=== PATIENT | female | born 1995 | race Caucasian/White ===

== ENCOUNTER 2017-09-20 00:25 | Day surgery (SDC) | payer OTHER ==
[~2017-09-20 00:25] MED LIST: BUDESONIDE EC3 MG PO; BUSP15 PO; CIPR500 PO; Entocort EC 3 mg3 MG PO; FAMO20 PO; Flonase 0.05% N16 GM; HYDMOR2 PO; Hydrocodone-Ap1 EA20 PO; IBUP800; IBUP800 PO; INFLECTRA100 MG IV; Lialda1.2 GM PO; METR500 PO; ONDA4 PO; OXYACE5T PO; PRED20 PO; PROM25 PO; Purinethol50 MG GT; Sulfamethoxazo1 EAC4 PO; TRAM50 PO; Ultram50 MG PO; Verotin-Gr Cap1 EACH PO
== END 2017-09-20 10:38 | disposition home or self-care (01) ==
LOC: ATC 00:25
DX: K50.00 Crohn's disease of small intestine without complications (principal); F41.9 Anxiety disorder, unspecified
CPT/HCPCS: 96413; 96415; J7050; Q5102-ZB

== ENCOUNTER 2017-10-30 | Day surgery (SDC) | END 2017-10-30 11:04 | disposition home or self-care (01) ==

== ENCOUNTER 2017-12-11 00:21 | Day surgery (SDC) | payer OTHER ==
[2017-12-11] MEDS ORDERED: BUDESONIDE EC3 MG PO (09:19)
== END 2017-12-11 11:34 | disposition home or self-care (01) ==
LOC: ATC 00:21
DX: K50.00 Crohn's disease of small intestine without complications (principal); F41.9 Anxiety disorder, unspecified
CPT/HCPCS: 96413; 96415; J7050; Q5103

== ENCOUNTER 2018-01-22 00:26 | Day surgery (SDC) | payer OTHER ==
[2018-01-22] MEDS ORDERED: ESCI10 PO (09:00)
== END 2018-01-22 11:29 | disposition home or self-care (01) ==
LOC: ATC 00:26
DX: K50.00 Crohn's disease of small intestine without complications (principal)
CPT/HCPCS: 96375; 96413; 96415; J2405; J7050; Q5103

== ENCOUNTER 2018-03-05 00:21 | Day surgery (SDC) | payer OTHER ==
[~2018-03-05 00:21] MED LIST changes: +ESCI10 PO
== END 2018-03-05 16:14 | disposition home or self-care (01) ==
LOC: ATC 00:21
DX: K50.00 Crohn's disease of small intestine without complications (principal); F41.9 Anxiety disorder, unspecified
CPT/HCPCS: 96413; 96415; J7050; Q5103

== ENCOUNTER 2018-04-16 16:06 | Emergency (ER) | payer OTHER ==
[~2018-04-16] VITALS: Ht 162.6 cm; Wt 77.1 kg
[2018-04-16 17:13] LABS: Source, Urine Clean Catch
[2018-04-16 17:19] LABS: BASOPHILS ABSOLUTE AUTO 0.07 K/mm3 (0.00-0.23); BASOPHILS PERCENT AUTO 1 % (0-2); EOSINOPHILS ABSOLUTE AUTO 0.25 K/mm3 (0.00-0.68); EOSINOPHILS PERCENT AUTO 3 % (0-6); Hemoglobin 13.1 g/dL (11.5-16.0); IMMATURE GRAN ABSOLUTE AUTO 0.02 K/mm3 (0.00-0.10); IMMATURE GRAN PERCENT AUTO 0 % (0-1); LYMPHOCYTES ABSOLUTE AUTO 2.47 K/mm3 (0.84-5.20); LYMPHOCYTES PERCENT AUTO 30 % (21-46); MONOCYTES ABSOLUTE AUTO 0.73 K/mm3 (0.16-1.47); MONOCYTES PERCENT AUTO 9 % (4-13); Mean Corpuscular HGB 31.9 pg (26.0-34.0); Mean Corpuscular HGB Conc 35.4 g/dL (31.5-36.5); Mean Corpuscular Volume 90 fL (80-100); Mean Platelet Volume 11.6 fL (9.1-12.4); NEUTROPHILS ABSOLUTE AUTO 4.61 K/mm3 (1.96-9.15); NEUTROPHILS PERCENT AUTO 57 % (41-73); Platelet Count 208 K/mm3 (150-400); RDW Coefficient Variation 11.7 % (11.7-14.2); RDW Standard Deviation 38.5 fL (35.1-46.3); Red Blood Cell Count 4.11 M/mm3 (3.80-5.20); White Blood Cell Count 8.15 K/mm3 (4.00-11.30)
[2018-04-16 17:22] LABS: Appearance, Urine Clear (Clear); Bilirubin, Urine Neg (Neg); Blood, Urine Neg (Neg); Color, Urine Yellow (P-Yellow); Glucose Qualitative, Urine Neg (Neg); Ketones, Urine Neg (Neg); Leukocyte Esterase, Urine 1+ (Neg); Nitrite, Urine Neg (Neg); Protein, Urine Neg (Neg); Specific Gravity, Urine 1.005 (1.003-1.022); Urobilinogen, Urine NORM (Normal)
[2018-04-16 17:39] LABS: Alanine Aminotransfer (ALT/SGP 22 U/L (12-78); Albumin, Blood 3.8 g/dL (3.4-5.0); Albumin/Globulin Ratio 1.1 (0.8-1.8); Alk Phos 58 U/L (50-136); Anion Gap 7 mmol/L (6-16); Aspartate Aminotrans (AST/SGOT 36 U/L (12-37); Bilirubin, Total 0.4 mg/dL (0.1-1.0); Blood Urea Nitrogen 13 mg/dL (8-24); Bun/Creatinine Ratio 19.6 (12.0-20.0); CO2, Blood 25 mmol/L (21-32); Calcium, Blood 8.9 mg/dL (8.5-10.1); Chloride, Blood 109 mmol/L (98-108); Creatinine, Blood 0.66 mg/dL (0.40-1.00); Globulin, Blood 3.4 g/dL (2.2-4.0); Glomerular Filtration Rate >60 (60-); Glucose, Blood 86 mg/dL (70-99); Potassium, Blood 4.5 mmol/L (3.5-5.5); Sodium, Blood 141 mmol/L (136-145); Total Protein, Blood 7.2 g/dL (6.4-8.2)
[2018-04-16 17:45] LABS: Bacteria Few /hpf; Red Blood Cells, Urine Not Seen /hpf (0-2); Squamous Epithelial Cells Mod /hpf (Few); White Blood Cells, Urine Not Seen /hpf (0-5)
[2018-04-16] MEDS ORDERED: Zofran4 MG PO (21:13)
[2018-04-16] MEDS ORDERED: TRAM50 PO (21:13)
== END 2018-04-16 21:31 | disposition home or self-care (01) ==
LOC: ER 16:06
PROVIDERS: Internal Medicine
DX: K52.9 Noninfective gastroenteritis and colitis, unspecified (principal)
CPT/HCPCS: 36415; 74177; 80053; 81001; 81025; 83690; 85025; 96374; 96375; 96376; 99284-25; J1200; J2405; J2765; J3010; Q9967

== ENCOUNTER 2018-05-30 02:02 | Day surgery (SDC) | payer OTHER ==
[~2018-05-30 02:02] MED LIST changes: +Zofran4 MG PO
== END 2018-05-30 16:37 | disposition home or self-care (01) ==
LOC: ATC 02:02
DX: K50.90 Crohn's disease, unspecified, without complications (principal)
CPT/HCPCS: 96413; 96415; J7050; Q5103

== ENCOUNTER 2018-09-03 18:55 | Emergency (ER) | payer OTHER ==
[~2018-09-03] VITALS: Ht 165.1 cm; Wt 70.3 kg
[2018-09-03 19:32] LABS: BASOPHILS ABSOLUTE AUTO 0.07 K/mm3 (0.00-0.23); BASOPHILS PERCENT AUTO 1 % (0-2); EOSINOPHILS ABSOLUTE AUTO 0.13 K/mm3 (0.00-0.68); EOSINOPHILS PERCENT AUTO 2 % (0-6); Hematocrit 40.1 % (33.0-51.0); Hemoglobin 13.8 g/dL (11.5-16.0); IMMATURE GRAN ABSOLUTE AUTO 0.03 K/mm3 (0.00-0.10); IMMATURE GRAN PERCENT AUTO 0 % (0-1); LYMPHOCYTES PERCENT AUTO 36 % (21-46); MONOCYTES ABSOLUTE AUTO 0.77 K/mm3 (0.16-1.47); MONOCYTES PERCENT AUTO 10 % (4-13); Mean Corpuscular HGB 31.3 pg (26.0-34.0); Mean Corpuscular HGB Conc 34.4 g/dL (31.5-36.5); Mean Corpuscular Volume 91 fL (80-100); Mean Platelet Volume 11.4 fL (9.1-12.4); NEUTROPHILS ABSOLUTE AUTO 4.09 K/mm3 (1.96-9.15); NEUTROPHILS PERCENT AUTO 51 % (41-73); Platelet Count 230 K/mm3 (150-400); RDW Coefficient Variation 11.4 % (11.7-14.2); RDW Standard Deviation 38.4 fL (35.1-46.3); Red Blood Cell Count 4.41 M/mm3 (3.80-5.20); White Blood Cell Count 7.99 K/mm3 (4.00-11.30)
[2018-09-03 19:46] LABS: Alanine Aminotransfer (ALT/SGP 19 U/L (12-78); Albumin, Blood 4.1 g/dL (3.4-5.0); Albumin/Globulin Ratio 1.2 (0.8-1.8); Alk Phos 54 U/L (50-136); Anion Gap 5 mmol/L (6-16); Aspartate Aminotrans (AST/SGOT 13 U/L (12-37); Bilirubin, Total 0.3 mg/dL (0.1-1.0); Blood Urea Nitrogen 13 mg/dL (8-24); Bun/Creatinine Ratio 17.2 (12.0-20.0); CO2, Blood 28 mmol/L (21-32); Calcium, Blood 8.8 mg/dL (8.5-10.1); Chloride, Blood 108 mmol/L (98-108); Creatinine, Blood 0.76 mg/dL (0.40-1.00); Globulin, Blood 3.4 g/dL (2.2-4.0); Glomerular Filtration Rate >60 (60-); Glucose, Blood 92 mg/dL (70-99); Potassium, Blood 3.9 mmol/L (3.5-5.5); Sodium, Blood 141 mmol/L (136-145); Total Protein, Blood 7.5 g/dL (6.4-8.2); Troponin I <0.015 ng/mL (0.000-0.040)
[2018-09-04] MEDS ORDERED: Vistaril25 MG PO (02:24)
== END 2018-09-04 02:47 | disposition home or self-care (01) ==
LOC: ER 18:55
PROVIDERS: Emergency Medicine
DX: F41.9 Anxiety disorder, unspecified (principal); R53.1 Weakness; R47.01 Aphasia; Z88.5 Allergy status to narcotic agent; Z79.899 Other long term (current) drug therapy
CPT/HCPCS: 36415; 70450; 74177; 80053; 84484; 85025; 96361; 96374; 96375; 96376; 99285-25; J2550; J3010; J7120; Q3014; Q9967

== ENCOUNTER 2018-09-17 00:11 | Day surgery (SDC) | payer OTHER ==
[~2018-09-17 00:11] MED LIST changes: +Vistaril25 MG PO
== END 2018-09-17 23:01 | disposition home or self-care (01) ==
LOC: ATC 00:11
DX: K50.00 Crohn's disease of small intestine without complications (principal)
CPT/HCPCS: 96413; 96415; J7050; Q5103

== ENCOUNTER 2018-11-12 00:12 | Day surgery (SDC) | payer OTHER | END 2018-11-12 16:25 | disposition home or self-care (01) | LOC: ATC 00:12 | DX: K50.00 Crohn's disease of small intestine without complications (principal); L40.9 Psoriasis, unspecified; F41.8 Other specified anxiety disorders | CPT/HCPCS: 96413; 96415; J7050; Q5103 ==

== ENCOUNTER 2018-12-18 13:42 | Emergency (ER) | payer OTHER ==
[~2018-12-18] VITALS: Ht 162.6 cm; Wt 68.0 kg
[2018-12-18] MEDS ORDERED: Remicade100 MG IV (13:55)
[2018-12-18] MEDS ORDERED: ESCI20 PO (13:55)
[2018-12-18] MEDS ORDERED: Veetids 500500 MG PO (14:08)
[2018-12-18] MEDS ORDERED: PROM25 PO (14:08)
== END 2018-12-18 14:17 | disposition home or self-care (01) ==
LOC: ER 13:42
DX: K04.7 Periapical abscess without sinus (principal); Z88.5 Allergy status to narcotic agent; Z79.899 Other long term (current) drug therapy
CPT/HCPCS: 99282

== ENCOUNTER 2018-12-26 00:18 | Day surgery (SDC) | payer OTHER ==
[~2018-12-26 00:18] MED LIST changes: +ESCI20 PO; +Remicade100 MG IV; +Veetids 500500 MG PO
--- NOTE | 2018-12-26 14:36 | NUR ---
12/26 1341 DENIES FEVER OR SURGERY. REPORTS SHE HAS ONE MORE DAY OF ANTIBIOTIC FOR DENTAL/WISDOM TOOTH. CALL PLACED TO DR ZHAO, HE REPORTS OKAY TO GIVE INFLECTRA.
== END 2018-12-26 16:04 | disposition home or self-care (01) ==
LOC: ATC 00:18
DX: K50.00 Crohn's disease of small intestine without complications (principal); F41.8 Other specified anxiety disorders; J45.909 Unspecified asthma, uncomplicated; Z88.5 Allergy status to narcotic agent; Z79.899 Other long term (current) drug therapy
CPT/HCPCS: 96413; 96415; J7050; Q5103

== ENCOUNTER → 2019-03-15 | Outpatient (CLI) | payer OTHER ==
[2019-03-18 15:06] LABS: CHLAMYDIA TRACHOMATIS, NAA Negative (Negative); NEISSERIA GONORRHOEAE, NAA Negative (Negative)
== END | disposition home or self-care (01) ==
LOC: LAB SHORT 11:28 → LAB 11:28
PROVIDERS: Obstetrics & Gynecology
DX: Z01.419 Encounter for gynecological examination (general) (routine) without abnormal findings (principal); Z11.3 Encounter for screening for infections with a predominantly sexual mode of transmission
CPT/HCPCS: 87491; 87591; G0123

== ENCOUNTER 2019-03-22 00:59 | Day surgery (SDC) | payer OTHER | END 2019-03-22 23:43 | disposition home or self-care (01) | LOC: ATC 00:59 | DX: K50.00 Crohn's disease of small intestine without complications (principal); F41.8 Other specified anxiety disorders; J45.909 Unspecified asthma, uncomplicated; Z88.8 Allergy status to other drugs, medicaments and biological substances; Z88.5 Allergy status to narcotic agent; Z79.899 Other long term (current) drug therapy | CPT/HCPCS: 96413; 96415; J7050; Q5103 ==

== ENCOUNTER 2019-05-01 00:09 | Day surgery (SDC) | payer OTHER | END 2019-05-01 16:57 | disposition home or self-care (01) | LOC: ATC 00:09 | DX: K50.00 Crohn's disease of small intestine without complications (principal); Z88.5 Allergy status to narcotic agent | CPT/HCPCS: 96413; 96415; A9270; J7050; Q5103 ==

== ENCOUNTER 2019-06-19 00:09 | Day surgery (SDC) | payer OTHER | END 2019-06-19 11:25 | disposition home or self-care (01) | LOC: ATC 00:09 | DX: K50.00 Crohn's disease of small intestine without complications (principal); F41.0 Panic disorder [episodic paroxysmal anxiety]; Z79.899 Other long term (current) drug therapy; Z88.5 Allergy status to narcotic agent; Z88.8 Allergy status to other drugs, medicaments and biological substances | CPT/HCPCS: 96413; 96415; J7050; Q5103 ==

== ENCOUNTER 2019-08-07 00:15 | Day surgery (SDC) | payer OTHER ==
--- NOTE | 2019-08-07 09:22 | NUR ---
PRE-MEDICATIONS: PATIENT RESTING COMFORTABLY IN CHAIR. DENIES RECENT FEVER, CHILLS, INFECTION, OR SURGICAL PROCEDURE. PATIENT DENIES NEED FOR PRE-MEDICATIONS. PATIENT REPORTS SHE IS FAMILIAR WITH RECEIVING REMICADE INFUSIONS AT [facility].
== END 2019-08-07 11:58 | disposition home or self-care (01) ==
LOC: ATC 00:15
DX: K50.00 Crohn's disease of small intestine without complications (principal); F41.9 Anxiety disorder, unspecified; Z88.5 Allergy status to narcotic agent; Z79.899 Other long term (current) drug therapy
CPT/HCPCS: 96413; 96415; J7050; Q5103

== ENCOUNTER 2019-09-23 00:06 | Day surgery (SDC) | payer OTHER | END 2019-09-23 11:29 | disposition home or self-care (01) | LOC: ATC 00:06 | DX: K50.00 Crohn's disease of small intestine without complications (principal); F41.0 Panic disorder [episodic paroxysmal anxiety]; Z79.899 Other long term (current) drug therapy; Z88.5 Allergy status to narcotic agent | CPT/HCPCS: 96413; 96415; J7050; Q5103 ==

== ENCOUNTER 2019-11-13 00:05 | Day surgery (SDC) | payer OTHER | END 2019-11-13 12:03 | disposition home or self-care (01) | LOC: ATC 00:05 | DX: K50.00 Crohn's disease of small intestine without complications (principal); F41.9 Anxiety disorder, unspecified; Z88.5 Allergy status to narcotic agent; Z79.899 Other long term (current) drug therapy | CPT/HCPCS: 96413; 96415; J2405; J7050; Q5103 ==

== ENCOUNTER 2020-01-03 00:11 | Day surgery (SDC) | payer OTHER | END 2020-01-03 16:15 | disposition home or self-care (01) | LOC: ATC 00:11 | DX: K50.00 Crohn's disease of small intestine without complications (principal); Z79.899 Other long term (current) drug therapy; F41.9 Anxiety disorder, unspecified; Z88.8 Allergy status to other drugs, medicaments and biological substances | CPT/HCPCS: J7050; Q5103 ==

== ENCOUNTER 2020-04-17 00:34 | Day surgery (SDC) | payer OTHER ==
[2020-04-17] MEDS ORDERED: TRAZ50 PO (15:48)
== END 2020-04-17 17:25 | disposition home or self-care (01) ==
LOC: ATC 00:34
DX: K50.00 Crohn's disease of small intestine without complications (principal); Z88.5 Allergy status to narcotic agent
CPT/HCPCS: 96413; 96415; J7050; Q5103

== ENCOUNTER 2020-07-27 01:54 | Day surgery (SDC) | payer OTHER ==
[~2020-07-27 01:54] MED LIST changes: +TRAZ50 PO
== END 2020-07-27 16:01 | disposition home or self-care (01) ==
LOC: ATC 01:54
DX: K50.00 Crohn's disease of small intestine without complications (principal); Z79.899 Other long term (current) drug therapy
CPT/HCPCS: 96413; 96415; J7050; Q5103

== ENCOUNTER 2020-09-14 00:32 | Day surgery (SDC) | payer OTHER | END 2020-09-14 11:30 | disposition home or self-care (01) | LOC: ATC 00:32 | DX: K50.00 Crohn's disease of small intestine without complications (principal); F41.9 Anxiety disorder, unspecified; F41.0 Panic disorder [episodic paroxysmal anxiety]; Z79.899 Other long term (current) drug therapy; Z88.5 Allergy status to narcotic agent | CPT/HCPCS: 96413; 96415; J7050; Q5103 ==

== ENCOUNTER 2020-11-02 00:22 | Day surgery (SDC) | payer OTHER ==
[~2020-11-02] VITALS: Wt 79.6 kg
--- NOTE | 2020-11-02 14:01 | NUR ---
PT DECLINED PRE MEDS TODAY.
== END 2020-11-02 15:57 | disposition home or self-care (01) ==
LOC: ATC 00:22
DX: K50.00 Crohn's disease of small intestine without complications (principal); Z88.5 Allergy status to narcotic agent; Z79.899 Other long term (current) drug therapy
CPT/HCPCS: 96413; 96415; J7050; Q5103

== ENCOUNTER → 2020-12-10 | Outpatient (CLI) | payer OTHER | END | disposition home or self-care (01) | LOC: LAB SHORT 10:30 | DX: N39.0 Urinary tract infection, site not specified (principal) | CPT/HCPCS: 87077; 87086; 87186 ==

== ENCOUNTER 2020-12-27 20:38 | Emergency (ER) | payer OTHER ==
[~2020-12-27] VITALS: Ht 162.6 cm; Wt 77.1 kg
[2020-12-27 21:03] LABS: BASOPHILS ABSOLUTE AUTO 0.09 K/mm3 (0.00-0.23); BASOPHILS PERCENT AUTO 1 % (0-2); EOSINOPHILS ABSOLUTE AUTO 0.22 K/mm3 (0.00-0.68); EOSINOPHILS PERCENT AUTO 3 % (0-6); Hematocrit 37.5 % (33.0-51.0); Hemoglobin 13.2 g/dL (11.5-16.0); IMMATURE GRAN ABSOLUTE AUTO 0.04 K/mm3 (0.00-0.10); IMMATURE GRAN PERCENT AUTO 1 % (0-1); LYMPHOCYTES ABSOLUTE AUTO 2.74 K/mm3 (0.84-5.20); LYMPHOCYTES PERCENT AUTO 38 % (21-46); MONOCYTES ABSOLUTE AUTO 0.78 K/mm3 (0.16-1.47); MONOCYTES PERCENT AUTO 11 % (4-13); Mean Corpuscular HGB 31.6 pg (26.0-34.0); Mean Corpuscular HGB Conc 35.2 g/dL (31.5-36.5); Mean Corpuscular Volume 90 fL (80-100); Mean Platelet Volume 10.9 fL (9.1-12.4); NEUTROPHILS ABSOLUTE AUTO 3.37 K/mm3 (1.96-9.15); NEUTROPHILS PERCENT AUTO 47 % (41-73); Platelet Count 271 K/mm3 (150-400); RDW Coefficient Variation 11.8 % (11.7-14.2); RDW Standard Deviation 38.5 fL (35.1-46.3); Red Blood Cell Count 4.18 M/mm3 (3.80-5.20); White Blood Cell Count 7.24 K/mm3 (4.00-11.30)
[2020-12-27 21:14] LABS: Source, Urine Clean Catch
[2020-12-27 21:22] LABS: Bilirubin, Urine Neg (Neg); Blood, Urine Neg (Neg); Glucose Qualitative, Urine Neg (Neg); Ketones, Urine Neg (Neg); Leukocyte Esterase, Urine 1+ (Neg); Nitrite, Urine Neg (Neg); Protein, Urine Neg (Neg); Specific Gravity, Urine 1.005 (1.003-1.022); Urobilinogen, Urine NORM (Normal)
[2020-12-27 21:23] LABS: Alanine Aminotransfer (ALT/SGP 20 U/L (12-78); Albumin, Blood 3.9 g/dL (3.4-5.0); Albumin/Globulin Ratio 1.2 (0.8-1.8); Alk Phos 46 U/L (50-136); Anion Gap 3 mmol/L (6-16); Aspartate Aminotrans (AST/SGOT 14 U/L (12-37); Bilirubin, Total 0.4 mg/dL (0.1-1.0); Blood Urea Nitrogen 10 mg/dL (8-24); Bun/Creatinine Ratio 10.4 (12.0-20.0); CO2, Blood 27 mmol/L (21-32); Calcium, Blood 8.6 mg/dL (8.5-10.1); Chloride, Blood 105 mmol/L (98-108); Creatinine, Blood 0.96 mg/dL (0.40-1.00); Globulin, Blood 3.2 g/dL (2.2-4.0); Glomerular Filtration Rate >60 (60-); Glucose, Blood 87 mg/dL (70-99); Potassium, Blood 3.8 mmol/L (3.5-5.5); Sodium, Blood 135 mmol/L (136-145); Total Protein, Blood 7.1 g/dL (6.4-8.2)
[2020-12-27 21:37] LABS: C-Reactive Protein, High Sens. <O.160 mg/L (0.000-3.000)
[2020-12-27 21:54] LABS: Appearance, Urine Hazy (Clear); Color, Urine Pale Yellow (P-Yellow)
[2020-12-27 21:55] LABS: Bacteria Few /hpf; Red Blood Cells, Urine Not Seen /hpf (0-2); Squamous Epithelial Cells Many /hpf (Few); White Blood Cells, Urine 0-2 /hpf (0-5)
[2020-12-27] MEDS ORDERED: Phenergan25 M1 PO (22:45)
== END 2020-12-27 23:44 | disposition home or self-care (01) ==
LOC: ER 20:38
PROVIDERS: Emergency Medicine
DX: K50.90 Crohn's disease, unspecified, without complications (principal)
CPT/HCPCS: 36415; 74177; 80053; 81001; 81025; 83690; 85025; 85651; 86141; 96361; 96374-59; 96375; 99283-25; A9270; A9270-GY; J1100; J2270; J2405; J2550; J7030; Q9967

== ENCOUNTER 2021-02-17 05:01 | Day surgery (SDC) | payer OTHER ==
[~2021-02-17 05:01] MED LIST changes: +Phenergan25 M1 PO
== END 2021-02-17 15:56 | disposition home or self-care (01) ==
LOC: ATC 05:01
DX: K50.00 Crohn's disease of small intestine without complications (principal)
CPT/HCPCS: 96413; 96415; A9270; J2405; J2920; J7050; Q5103

== ENCOUNTER 2021-04-09 00:09 | Day surgery (SDC) | payer OTHER | END 2021-04-09 16:40 | disposition home or self-care (01) | LOC: ATC 00:09 | DX: K50.00 Crohn's disease of small intestine without complications (principal); Z88.5 Allergy status to narcotic agent | CPT/HCPCS: 96413; 96415; J7050; Q5103 ==

== ENCOUNTER 2021-05-28 03:43 | Day surgery (SDC) | payer OTHER ==
[~2021-05-28] VITALS: Wt 76.3 kg
== END 2021-05-28 16:07 | disposition home or self-care (01) ==
LOC: ATC 03:43
DX: K50.00 Crohn's disease of small intestine without complications (principal)
CPT/HCPCS: 96413; 96415; J7050; Q5103

== ENCOUNTER → 2021-05-28 | Outpatient (CLI) | payer OTHER | END | disposition home or self-care (01) | LOC: LAB 13:42 → LAB SHORT 13:42 | DX: K92.1 Melena (principal); R19.7 Diarrhea, unspecified | CPT/HCPCS: 82397 ==

== ENCOUNTER 2021-07-16 04:10 | Day surgery (SDC) | payer OTHER ==
--- NOTE | 2021-07-16 14:25 | NUR ---
PT DECLINES PRE MEDS TODAY.
== END 2021-07-16 16:40 | disposition home or self-care (01) ==
LOC: ATC 04:10
DX: K50.00 Crohn's disease of small intestine without complications (principal); Z79.899 Other long term (current) drug therapy
CPT/HCPCS: 96413; 96415; J7050; Q5103

== ENCOUNTER 2021-10-28 00:09 | Day surgery (SDC) | payer OTHER ==
[~2021-10-28] VITALS: Wt 81.9 kg
[~2021-10-28 00:09] MED LIST changes: +MESALAMINE DR400 MG PO
--- NOTE | 2021-10-28 14:30 | NUR ---
PT DECLINES PRE MEDS.
== END 2021-10-28 16:39 | disposition home or self-care (01) ==
LOC: ATC 00:09
DX: K50.00 Crohn's disease of small intestine without complications (principal); Z88.5 Allergy status to narcotic agent
CPT/HCPCS: 96413; 96415; J7050; Q5103

== ENCOUNTER 2021-12-16 00:56 | Day surgery (SDC) | payer OTHER ==
[~2021-12-16] VITALS: Wt 84.1 kg
--- NOTE | 2021-12-16 14:00 | NUR ---
PT DECLINES PRE MEDS.
== END 2021-12-16 16:18 | disposition home or self-care (01) ==
LOC: ATC 00:56
DX: K50.00 Crohn's disease of small intestine without complications (principal); Z79.899 Other long term (current) drug therapy
CPT/HCPCS: 96413; 96415; J7050; Q5103

== ENCOUNTER 2022-03-28 05:48 | Day surgery (SDC) | payer OTHER ==
[~2022-03-28 05:48] MED LIST changes: +HYDCOR2.5C PR
== END 2022-03-28 16:36 | disposition home or self-care (01) ==
LOC: ATC 05:48
DX: K50.00 Crohn's disease of small intestine without complications (principal)
CPT/HCPCS: 96413; 96415; J7050; Q5103

== ENCOUNTER 2022-05-18 07:35 | Day surgery (SDC) | payer OTHER | END 2022-05-18 16:34 | disposition home or self-care (01) | LOC: ATC 07:35 | DX: K50.00 Crohn's disease of small intestine without complications (principal); Z79.899 Other long term (current) drug therapy | CPT/HCPCS: 96413; 96415; J7050; Q5103 ==

== ENCOUNTER 2022-07-06 02:33 | Day surgery (SDC) | payer OTHER ==
[~2022-07-06] VITALS: Wt 89.6 kg
--- NOTE | 2022-07-06 13:28 | NUR ---
PT DECLINES PRE MEDS TODAY.
== END 2022-07-06 15:56 | disposition home or self-care (01) ==
LOC: ATC 02:33
DX: K50.00 Crohn's disease of small intestine without complications (principal); Z79.899 Other long term (current) drug therapy; R19.4 Change in bowel habit
CPT/HCPCS: 96413; 96415; J7050; Q5103

== ENCOUNTER 2022-08-24 00:30 | Day surgery (SDC) | payer OTHER | END 2022-08-24 16:30 | disposition home or self-care (01) | LOC: ATC 00:30 | DX: K50.00 Crohn's disease of small intestine without complications (principal); Z88.5 Allergy status to narcotic agent | CPT/HCPCS: 96413; 96415; J7050; Q5103 ==

== ENCOUNTER 2022-10-12 00:22 | Day surgery (SDC) | payer OTHER ==
[~2022-10-12] VITALS: Wt 90.6 kg
== END 2022-10-12 16:40 | disposition home or self-care (01) ==
LOC: ATC 00:22
DX: K50.00 Crohn's disease of small intestine without complications (principal)
CPT/HCPCS: J7050; Q5103

== ENCOUNTER 2023-03-06 01:12 | Day surgery (SDC) | payer OTHER ==
[~2023-03-06] VITALS: Wt 87.7 kg
[2023-03-06 13:19] VITALS: BP 126/82
--- NOTE | 2023-03-06 13:42 | NUR ---
TWO UNSUCCESSFUL IV ATTEMPTS BY [facility] PRIOR TO IV START BY [facility]
== END 2023-03-06 16:21 | disposition home or self-care (01) ==
LOC: ATC 01:12
DX: K50.00 Crohn's disease of small intestine without complications (principal); F41.9 Anxiety disorder, unspecified; F41.0 Panic disorder [episodic paroxysmal anxiety]; R11.2 Nausea with vomiting, unspecified; K21.9 Gastro-esophageal reflux disease without esophagitis; R10.31 Right lower quadrant pain; Z79.899 Other long term (current) drug therapy
CPT/HCPCS: 96413; 96415; J7050; Q5103

== ENCOUNTER 2023-04-24 00:31 | Day surgery (SDC) | payer OTHER ==
[2023-04-24 13:24] VITALS: BP 117/87
--- NOTE | 2023-04-24 13:45 | NUR ---
PT DECLINES PRE MEDS TODAY.
== END 2023-04-24 16:25 | disposition home or self-care (01) ==
LOC: ATC 00:31
DX: K50.00 Crohn's disease of small intestine without complications (principal); F41.9 Anxiety disorder, unspecified; Z79.899 Other long term (current) drug therapy
CPT/HCPCS: 96413; 96415; J7050; Q5103

== ENCOUNTER 2023-05-22 10:00 | Emergency (ER) | payer OTHER ==
[~2023-05-22] VITALS: Ht 162.6 cm; Wt 88.5 kg
[2023-05-22 10:58] LABS: Source, Urine Clean Catch
[2023-05-22 10:58] LABS: BASOPHILS ABSOLUTE AUTO 0.05 K/mm3 (0.00-0.23); BASOPHILS PERCENT AUTO 1 % (0-2); EOSINOPHILS ABSOLUTE AUTO 0.07 K/mm3 (0.00-0.68); EOSINOPHILS PERCENT AUTO 1 % (0-6); Hematocrit 40.3 % (33.0-51.0); Hemoglobin 14.2 g/dL (11.5-16.0); IMMATURE GRAN ABSOLUTE AUTO 0.02 K/mm3 (0.00-0.10); IMMATURE GRAN PERCENT AUTO 0 % (0-1); LYMPHOCYTES ABSOLUTE AUTO 1.79 K/mm3 (0.84-5.20); LYMPHOCYTES PERCENT AUTO 26 % (21-46); MONOCYTES ABSOLUTE AUTO 0.48 K/mm3 (0.16-1.47); MONOCYTES PERCENT AUTO 7 % (4-13); Mean Corpuscular HGB 32.3 pg (26.0-34.0); Mean Corpuscular HGB Conc 35.2 g/dL (31.5-36.5); Mean Corpuscular Volume 92 fL (80-100); Mean Platelet Volume 10.9 fL (9.1-12.4); NEUTROPHILS ABSOLUTE AUTO 4.47 K/mm3 (1.96-9.15); NEUTROPHILS PERCENT AUTO 65 % (41-73); Platelet Count 272 K/mm3 (150-400); RDW Standard Deviation 37.7 fL (35.1-46.3); White Blood Cell Count 6.88 K/mm3 (4.00-11.30)
[2023-05-22 11:23] LABS: Albumin, Blood 4.3 g/dL (3.4-5.0); Albumin/Globulin Ratio 1.2 (0.8-1.8); Bilirubin, Total 0.8 mg/dL (0.1-1.0); Bun/Creatinine Ratio 16.9 (12.0-20.0); Calcium, Blood 9.5 mg/dL (8.5-10.1); Creatinine, Blood 0.83 mg/dL (0.40-1.00); Globulin, Blood 3.7 g/dL (2.2-4.0); Potassium, Blood 3.8 mmol/L (3.5-5.5)
[2023-05-22 11:26] LABS: Appearance, Urine Clear (Clear); Bilirubin, Urine Neg (Neg); Blood, Urine Neg (Neg); Color, Urine Yellow (P-Yellow); Glucose Qualitative, Urine Neg (Neg); Ketones, Urine Neg (Neg); Leukocyte Esterase, Urine Neg (Neg); Nitrite, Urine Neg (Neg); Protein, Urine Neg (Neg); Urobilinogen, Urine NORM (Normal); pH, Urine 6.5 (5.0-8.0)
[2023-05-22 13:00] VITALS: BP 135/85
[2023-05-22] MEDS ORDERED: HYDR1TAB94 PO (14:09)
== END 2023-05-22 14:26 | disposition home or self-care (01) ==
LOC: ER 10:00
PROVIDERS: Student in an Organized Health Care Education/Training Program
DX: R10.31 Right lower quadrant pain (principal); Z79.899 Other long term (current) drug therapy
CPT/HCPCS: 74177; 80053; 81003; 81025; 83690; 85025; 96374-59; 96375-59; 99284-25; J2270; J2405; Q9967

== ENCOUNTER 2023-06-12 00:09 | Day surgery (SDC) | payer OTHER ==
[~2023-06-12 00:09] MED LIST changes: +HYDR1TAB94 PO
[2023-06-12 14:08] VITALS: BP 122/60
== END 2023-06-12 17:05 | disposition home or self-care (01) ==
LOC: ATC 00:09
DX: K50.00 Crohn's disease of small intestine without complications (principal)
CPT/HCPCS: 96413; 96415; J7050; Q5103

== ENCOUNTER 2023-07-31 02:26 | Day surgery (SDC) | payer OTHER ==
[2023-07-31 15:45] VITALS: BP 99/50
== END 2023-07-31 22:58 | disposition home or self-care (01) ==
LOC: ATC 02:26
DX: K50.00 Crohn's disease of small intestine without complications (principal); Z79.899 Other long term (current) drug therapy
CPT/HCPCS: 96413; 96415; J7050; Q5103

== ENCOUNTER 2023-09-25 00:54 | Day surgery (SDC) | payer OTHER ==
[2023-09-25 13:36] VITALS: BP 124/75
== END 2023-09-25 16:28 | disposition home or self-care (01) ==
LOC: ATC 00:54
DX: K50.00 Crohn's disease of small intestine without complications (principal); Z79.899 Other long term (current) drug therapy; K21.9 Gastro-esophageal reflux disease without esophagitis
CPT/HCPCS: 96413; 96415; J7050; Q5103